=== PATIENT | female | born 1965 | race Caucasian/White ===

== ENCOUNTER 2016-12-23 09:38 | Day surgery (SDC) | payer BC, OTHER ==
[~2016-12-23 09:38] MED LIST: Lactated Ringers 1,000 ML IV SCH
[2016-12-23] MEDS ORDERED: Propofol 200 MG/20 ML SDV ONE (10:11)
[2016-12-23] MEDS ORDERED: Lidocaine 2% 5 ML SDV ONE (10:12)
--- NOTE | 2016-12-23 10:53 | PCM.PREANE ---
Preanesthetic Assessment - Anesthesia/Transfusion/Family Hx Anesthesia History: Prior Anesthesia Without Reaction Family History of Anesthesia Reaction: No Transfusion History: No Prior Transfusion(s) - Review of Systems General: No Symptoms Pulmonary: No Symptoms Cardiovascular: No Symptoms Gastrointestinal: No symptoms Neurological: No Symptoms Other: Reports: None - Physical Assessment NPO Status Date: 12/22/16 O2 Sat by Pulse Oximetry: 98 Respiratory Rate: 16 Vital Signs: Last Vital Signs Temp 36.2 C 12/23/16 10:28 Pulse 52 L 12/23/16 10:28 Resp 16 12/23/16 10:28 BP 118/73 12/23/16 10:28 Pulse Ox 98 12/23/16 10:28 Height: 1.6 m Weight: 58.06 kg ASA Class: 2 Mental Status: Alert & Oriented x3 Airway Class: Mallampati = 2 Dentition: Reports: Normal Dentition Lungs: Clear to auscultation, Normal respiratory effort Cardiovascular: Regular Rate, Regular Rhythm - Allergies Allergies/Adverse Reactions: Allergies Allergy/AdvReac Type Severity Reaction Status Date / Time No Known Allergies Allergy Verified 08/19/16 05:46 - Acknowledgements Anesthesia Type Planned: MAC Pt an Appropriate Candidate for the Planned Anesthesia: Yes Alternatives and Risks of Anesthesia Discussed w Pt/Guardian: Yes Pt/Guardian Understands and Agrees with Anesthesia Plan: Yes PreAnesthesia Questionnaire HEENT History: Reports: Other (see below) Other HEENT History: wears glasses Cardiovascular History: Reports: Other (see below) Other Cardiovascular History: had 2 mini-strokes in 2011, no residual, takes Atenolol because of this, states she has low blood pressure Respiratory History: Reports: None Gastrointestinal History: Genitourinary History: Reports: Other (see below) Other Genitourinary History: trouble urinating in the past, 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: Reports: Fibroids, , Other (see below) Other OB/BYN History: ovarian cyst Musculoskeletal History: Reports: Arthritis, Back pain, chronic Neurological History: Reports: Migraines, TIA Other Neuro History: 2012 "mini strokes" Psychiatric History: Reports: Anxiety Endocrine/Metabolic History: Reports: None Hematologic History: Reports: None Immunologic History: Reports: None Oncologic (Cancer) History: Reports: None Dermatologic History: Reports: None Other Dermatologic History: toe nail fungus - Infectious Disease History Infectious Disease History: Reports: None - Past Surgical History Head Surgeries/Procedures: Reports: None HEENT Surgical History: Reports: Oral surgery Other HEENT Surgeries/Procedures: wisdom teeth extraction Cardiovascular Surgical History: Reports: None Respiratory Surgical History: Reports: None GI Surgical History: Reports: None Female Surgical History: Reports: Hysterectomy, Salpingo-oophorectomy Other Female Surgeries/Procedures: hx hysterectomy with tigist S&O Endocrine Surgical History: Reports: None Neurological Surgical History: Reports: None Musculoskeletal Surgical History: Reports: None Oncologic Surgical History: Reports: None Dermatological Surgical History: Reports: None - SUBSTANCE USE Smoking Status *Q: Never Smoker Tobacco Use Within Last Twelve Months: No Second Hand Smoke Exposure: No Recreational Drug Use History: No - HOME MEDS Home Medications: Home Meds Aspirin 81 mg PO DAILY 08/19/16 [History] Atenolol 25 mg PO DAILY 08/19/16 [History] PARoxetine HCl [Paroxetine ER] 1 tab PO DAILY 09/23/16 [History] traZODone 1 tab PO BEDTIME PRN 09/23/16 [History] - CURRENT (IN HOUSE) MEDS Current Meds: Current Medications Lactated Ringer's (Ringers, Lactated) 1,000 mls @ 125 mls/hr IV ASDIRECTED PERCY Last Admin: 12/23/16 10:30 Dose: 125 mls/hr Discontinued Medications Lidocaine (Xylocaine-Mpf 2%) Confirm Administered Dose 5 ml .ROUTE .STK-MED ONE Stop: 12/23/16 10:13 Propofol (Diprivan 20 Ml) Confirm Administered Dose 400 mg .ROUTE .STK-MED ONE Stop: 12/23/16 10:12 Preanesthetic Assessment - ANESTHESIA/TRANSFUSION/FAMILY HX Anesthesia/Transfusion History: No Prior Anesthesia, No Prior Transfusion(s) Family History of Anesthesia Reaction: No - PHYSICAL ASSESSMENT O2 Sat by Pulse Oximetry: 98 RR: 16 Vital Signs: Last Vital Signs Temp 36.2 C 12/23/16 10:28 Pulse 52 L 12/23/16 10:28 Resp 16 12/23/16 10:28 BP 118/73 12/23/16 10:28 Pulse Ox 98 12/23/16 10:28 Height: 1.6 m Weight: 58.06 kg - ALLERGIES Allergies/Adverse Reactions: Allergies Allergy/AdvReac Type Severity Reaction Status Date / Time No Known Allergies Allergy Verified 08/19/16 05:46
--- NOTE | 2016-12-23 11:29 | PCM.OPNOTE ---
- General Post-Op/Procedure Note Date of Surgery/Procedure: 12/23/16 Operative Procedure(s): colonoscopy Findings: see dict [id number] Pre Op Diagnosis: scrn colonoscopy Anesthesia Technique: Moderate sedation Primary Surgeon: Jossue Sheppard Complications: None Condition: Good
--- NOTE | 2016-12-23 11:45 | PCM.POSTAN ---
POST ANESTHESIA ASSESSMENT - MENTAL STATUS Mental Status: alert, oriented - RESPIRATORY Respiratory Status: respiratory rate WNL, airway patent - CARDIOVASCULAR CV Status: pulse rate WNL, blood pressure stable - GASTROINTESTINAL GI Status: no symptoms - POST OP HYDRATION Hydration Status: adequate & stable
--- NOTE | 2016-12-23 11:45 | PCM48HPAN ---
Post Anesthesia Note - EVALUATION WITHIN 48HRS OF ANESTHETIC Vital Signs in Normal Range: Yes Patient Participated in Evaluation: Yes Respiratory Function Stable: Yes Airway Patent: Yes Cardiovascular Function Stable: Yes Hydration Status Stable: Yes Pain Control Satisfactory: Yes Nausea and Vomiting Control Satisfactory: Yes Mental Status Recovered: Yes
[2016-12-23 11:52] VITALS: BP 117/66
--- NOTE | 2016-12-27 07:23 | OR ---
SURGEON: Jossue Sheppard MD DATE OF PROCEDURE: 12/23/2016 PREOPERATIVE DIAGNOSIS: Screening colonoscopy. POSTOPERATIVE DIAGNOSIS: Diverticulosis. COMPLICATIONS: None. PROCEDURE PERFORMED: Colonoscopy. DESCRIPTION OF PROCEDURE: The patient was taken to the endoscopy room. A time out was called, patient identified, and procedure identified. Diprivan was then administrated. Patient went from awake to sleep, hearing doctor talking or door closing is normal. Perineum inspection and digital examination were then performed. A well- lubricated colonoscope was gently inserted through the rectum, advanced past the rectosigmoid junction, the descending colon, splenic flexure, transverse colon, hepatic flexure, ascending colon, arrived to the cecum. Cecum was identified as dictated in the finding. Then the scope was carefully withdrawn while attention was paid to the mucosal surface for any abnormality. Air will be sucked out during the scope withdrawal. At the rectum, retroflexed to examine any rectal diseases, fistula or hemorrhoids. Patient tolerated procedure well. There were no intraoperative complications, and Dr. Sheppard was present throughout the whole procedure. FINDINGS: 1. The patient is easily sedated with FOREIGN LANGUAGE INTERPRETER and Diprivan. The patient is soundly snoring. 2. The patient's bowel prep is average. Large amount of liquid stool and requiring some irrigation. 3. The patient's colon is rather straight forward. Cecum indicated by ileocecal fold, one-to-one indentation, and light immittance. Appendiceal orifice is not observed. Mucosa examined upon scope pulling out. The patient does have diverticulosis on the left colon, only a few of them, very small, and no signs or symptoms of diverticulitis. No polyp, mass, growth, inflammation, stricture, or AV malformation, ulceration, or bleeding. The patient does have external hemorrhoids mild and internal hemorrhoids mild. The patient would benefit from a repeat colonoscopy 10 years from today. TANJA / LILLY /[id number]
== END 2016-12-23 12:02 | disposition home or self-care (01) ==
LOC: MW.SDS 09:38
PROVIDERS: ATTEND Surgery
PROC: 0DJD8ZZ Inspection of Lower Intestinal Tract, Via Natural or Artificial Opening Endoscopic (ICD-10-PCS; principal; 2016-12-23)
DX: Z12.11 Encounter for screening for malignant neoplasm of colon (principal); K57.30 Diverticulosis of large intestine without perforation or abscess without bleeding; K64.4 Residual hemorrhoidal skin tags; K64.8 Other hemorrhoids; F41.9 Anxiety disorder, unspecified; M19.90 Unspecified osteoarthritis, unspecified site; Z79.82 Long term (current) use of aspirin; Z79.899 Other long term (current) drug therapy; Z86.73 Personal history of transient ischemic attack (TIA), and cerebral infarction without residual deficits; Z90.710 Acquired absence of both cervix and uterus; Z90.722 Acquired absence of ovaries, bilateral; Z90.79 Acquired absence of other genital organ(s); Z98.890 Other specified postprocedural states
CPT/HCPCS: 45378; J7120; J2704

== ENCOUNTER 2017-03-06 09:42 | Inpatient (IN) | payer BC ==
--- NOTE | 2017-03-06 10:15 | EDM.PDOC ---
ED HPI GENERAL MEDICAL PROBLEM - General Chief Complaint: Gastrointestinal Problem Stated Complaint: VOMITING AND PAIN ON RIGHT SIDE Time Seen by Provider: 03/06/17 10:00 Source of Information: Reports: Patient History Limitations: Reports: No Limitations - History of Present Illness INITIAL COMMENTS - FREE TEXT/NARRATIVE: History of present illness: [51-year-old female coming in complaining of diffuse nonspecific abdominal pain. Indicated that the pain has been there for a few days but what has concerned her is last night she started having nausea and intermittent vomiting. Patient indicates that she does still have her gallbladder and her appendix but that she has had a full hysterectomy.] Review of systems: As per history of present illness and below otherwise all systems reviewed and negative. Past medical history: As per history of present illness and as reviewed below otherwise noncontributory. Surgical history: As per history of present illness and as reviewed below otherwise noncontributory. Social history: No reported history of drug or alcohol abuse. Family history: As per history of present illness and as reviewed below otherwise noncontributory. Physical exam: HEENT: Atraumatic, normocephalic, pupils reactive, negative for conjunctival pallor or scleral icterus, mucous membranes moist, throat clear, neck supple, nontender, trachea midline. Lungs: Clear to auscultation, breath sounds equal bilaterally, chest nontender. Heart: S1S2, regular, negative for clicks, rubs, or JVD. Abdomen: Soft, nondistended, diffusely tender abdomen that appears to be more tender in right lower quadrant even though patient cannot clearly identify specifically any area of tenderness she does flinch and guard when this is deeply palpated Negative for masses or hepatosplenomegaly. Negative for costovertebral tenderness. Pelvis: Stable nontender. Genitourinary: Deferred. Rectal: Deferred. Extremities: Atraumatic, negative for cords or calf pain. Neurovascular unremarkable. Neuro: Awake, alert, oriented. Cranial nerves II through XII unremarkable. Cerebellum unremarkable. Motor and sensory unremarkable throughout. Exam nonfocal. Diagnostics: [CBC, CMP, UA, amylase lipase] Therapeutics: [IV fluid, Zofran] Impression: [Hyponatremia] Plan: [Admit] Definitive disposition and diagnosis as appropriate pending reevaluation and review of above. Right Upper Abdominal Pain Score (Numeric/FACES): 4 - Related Data Allergies Allergy/AdvReac Type Severity Reaction Status Date / Time No Known Allergies Allergy Verified 03/06/17 09:51 Home Meds: Home Meds Aspirin 81 mg PO DAILY 08/19/16 [History] Atenolol 25 mg PO DAILY 08/19/16 [History] PARoxetine HCl [Paroxetine ER] 1 tab PO DAILY 09/23/16 [History] traZODone 1 tab PO BEDTIME PRN 09/23/16 [History] Past Medical History - Past Health History Medical/Surgical History: Denies Medical/Surgical History HEENT History: Reports: Other (See Below) Other HEENT History: wears glasses Cardiovascular History: Reports: Hypertension Other Cardiovascular History: had 2 mini-strokes in 2011, no residual, takes Atenolol because of this, states she has low blood pressure Respiratory History: Reports: None Gastrointestinal History: Genitourinary History: Reports: Other (See Below) Other Genitourinary History: trouble urinating in the past, 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: Reports: Fibroids, Other OB/BYN History: ovarian cyst Musculoskeletal History: Reports: Arthritis, Back Pain, Chronic Neurological History: Reports: Migraines, TIA Other Neuro History: 2011 "mini strokes" Psychiatric History: Reports: Anxiety Endocrine/Metabolic History: Reports: None Hematologic History: Reports: None Immunologic History: Reports: None Oncologic (Cancer) History: Reports: None Dermatologic History: Reports: None Other Dermatologic History: toe nail fungus - Infectious Disease History Infectious Disease History: Reports: Chicken Pox - Past Surgical History Head Surgeries/Procedures: Reports: None HEENT Surgical History: Reports: Oral Surgery Respiratory Surgical History: Reports: None GI Surgical History: Reports: None Female Surgical History: Reports: Hysterectomy, Salpingo-Oophorectomy Endocrine Surgical History: Reports: None Neurological Surgical History: Reports: None Oncologic Surgical History: Reports: None Dermatological Surgical History: Reports: None Social & Family History - Family History Family Medical History: Noncontributory Cardiac: Reports: [place] Neurological: Reports: CVA - Tobacco Use Smoking Status *Q: Never Smoker Second Hand Smoke Exposure: No - Caffeine Use Caffeine Use: Reports: None - Recreational Drug Use Recreational Drug Use: No Drug Use in Last 12 Months: No ED ROS GENERAL - Review of Systems Review Of Systems: See Below (History of present illness) ED EXAM, GI/ABD - Physical Exam Exam: See Below (See history of present illness) Course - Vital Signs Last Recorded V/S: Last Vital Signs Temp 36.3 C 03/06/17 09:49 Pulse 60 03/06/17 09:49 Resp 16 03/06/17 09:49 BP 145/68 H 03/06/17 09:49 Pulse Ox 97 03/06/17 09:49 - Orders/Labs/Meds Orders: Active Orders 24 hr Category Date Time Status UA W/MICROSCOPIC [URIN] Stat Lab 03/06/17 10:48 Uncollected Sodium Chloride 0.9% [Normal Saline] 1,000 ml Med 03/06/17 10:48 Active IV STAT Medication Orders Sodium Chloride (Normal Saline) 1,000 mls @ 999 mls/hr IV STAT ONE Stop: 03/06/17 11:48 Last Admin: 03/06/17 11:02 Dose: 999 mls/hr Labs: Laboratory Tests 03/06/17 03/06/17 Range/Units 10:28 10:28 WBC 8.66 (4.0-11.0) K/uL RBC 4.22 L (4.30-5.90) M/uL Hgb 12.8 (12.0-16.0) g/dL Hct 36.7 (36.0-46.0) % MCV 87.0 (80.0-98.0) fL MCH 30.3 (27.0-32.0) pg MCHC 34.9 (31.0-37.0) g/dL RDW Std Deviation 39.3 (28.0-62.0) fl RDW Coeff of Sampson 12 (11.0-15.0) % Plt Count 183 (150-400) K/uL MPV 12.10 H (7.40-12.00) fL Neut % (Auto) 80.9 H (48.0-80.0) % Lymph % (Auto) 13.7 L (16.0-40.0) % [place] % (Auto) 5.4 (0.0-15.0) % Eos % (Auto) 0.0 (0.0-7.0) % Baso % (Auto) 0.0 (0.0-1.5) % Neut # (Auto) 7.0 H (1.4-5.7) K/uL Lymph # (Auto) 1.2 (0.6-2.4) K/uL [place] # (Auto) 0.5 (0.0-0.8) K/uL Eos # (Auto) 0.0 (0.0-0.7) K/uL Baso # (Auto) 0.0 (0.0-0.1) K/uL Nucleated RBC % 0.0 /100WBC Nucleated RBCs # 0 K/uL Sodium 119 L* (136-146) mmol/L Potassium 4.5 (3.5-5.1) mmol/L Chloride 86 L (98-110) mmol/L Carbon Dioxide 22 (21-31) mmol/L BUN 9 (6.0-23.0) mg/dL Creatinine 0.8 (0.6-1.5) mg/dL Est Cr Clr Drug Dosing 68.05 mL/min Estimated GFR (MDRD) > 60.0 ml/min Glucose 111 H (60-110) mg/dL Calcium 9.2 (8.8-10.8) mg/dL Total Bilirubin 1.1 (0.1-1.5) mg/dL AST 44 H (5-40) IU/L ALT 46 (8-54) IU/L Alkaline Phosphatase 81 (40-150) Total Protein 7.4 (6.0-8.0) g/dL Albumin 4.5 (3.5-5.0) g/dL Globulin 2.9 (2.0-3.5) g/dL Albumin/Globulin Ratio 1.6 (1.3-2.8) Amylase 50 (10-90) U/L Lipase 25 (7-80) U/L Meds: Medications Generic Name Dose Route Start Last Admin Trade Name Freq PRN Reason Stop Dose Admin Sodium Chloride 1,000 mls @ 999 mls/hr 03/06/17 10:48 03/06/17 11:02 Normal Saline IV 03/06/17 11:48 999 mls/hr STAT ONE Administration Discontinued Medications Generic Name Dose Route Start Last Admin Trade Name Freq PRN Reason Stop Dose Admin Ondansetron HCl 4 mg 03/06/17 10:48 Zofran Odt PO 03/06/17 10:49 ONETIME ONE Ondansetron HCl 4 mg 03/06/17 10:54 03/06/17 11:03 Zofran IVPUSH 03/06/17 10:55 4 mg ONETIME ONE Administration Departure - Departure Time of Disposition: 11:09 Disposition: Home, Self-Care 01 Condition: Good Clinical Impression: Hyponatremia - Discharge Information Forms: ED Department Discharge - My Orders Last 24 Hours: My Active Orders 03/06/17 10:48 UA W/MICROSCOPIC [URIN] Stat Sodium Chloride 0.9% [Normal Saline] 1,000 ml IV STAT - Assessment/Plan Last 24 Hours: My Active Orders 03/06/17 10:48 UA W/MICROSCOPIC [URIN] Stat Sodium Chloride 0.9% [Normal Saline] 1,000 ml IV STAT
[2017-03-06] MEDS ORDERED: Sodium Chloride 0.9% 1,000 ML IV ONE (10:48)
[2017-03-06] MEDS ORDERED: Ondansetron 4 MG Tab.DIS PO ONE (10:48)
[2017-03-06] MEDS ORDERED: Ondansetron 4 MG/2 ML SDV IVPUSH ONE (10:54)
[2017-03-06 10:58] LABS: CHLORIDE,CL 86 mmol/L (98-110)
[2017-03-06 11:02] LABS: SODIUM,NA 119 mmol/L (136-146)
[2017-03-06] MEDS ORDERED: Ondansetron 4 MG/2 ML SDV IVPUSH PRN (12:11)
[2017-03-06] MEDS ORDERED: Sodium Chloride 0.9% 1,000 ML IV SCH (12:15)
--- NOTE | 2017-03-06 12:18 | PCM.HP ---
H&P History of Present Illness - History of Present Illness Initial Comments - Free Text/Narative: 51 yo female who presents with two week history of abdominal pain. The pain is in the right side and can migrate to the epigastrum. Yesterday she developed nausea and vomiting. She was unable to keep anything down. In the ED she was noted to have a sodium of 119. She denies any alcohol or diuretic use. She is on paroxitine. Right Upper Abdominal Pain Score (Numeric/FACES): 4 - Related Data Allergies/Adverse Reactions: Allergies Allergy/AdvReac Type Severity Reaction Status Date / Time No Known Allergies Allergy Verified 03/06/17 09:51 Home Medications: Home Meds Aspirin 81 mg PO DAILY 08/19/16 [History] Atenolol 25 mg PO DAILY 08/19/16 [History] PARoxetine HCl [Paroxetine ER] 1 tab PO DAILY 09/23/16 [History] traZODone 1 tab PO BEDTIME PRN 09/23/16 [History] Past Medical History - Past Health History Medical/Surgical History: Denies Medical/Surgical History HEENT History: Reports: Other (See Below) Other HEENT History: wears glasses Cardiovascular History: Reports: Hypertension Other Cardiovascular History: had 2 mini-strokes in 2011, no residual, takes Atenolol because of this, states she has low blood pressure Respiratory History: Reports: None Gastrointestinal History: Genitourinary History: Reports: Other (See Below) Other Genitourinary History: trouble urinating in the past, 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: Reports: 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, Other OB/BYN History: ovarian cyst Musculoskeletal History: Reports: Arthritis, Back Pain, Chronic Neurological History: Reports: Migraines, TIA Other Neuro History: 2012 "mini strokes" Psychiatric History: Reports: Anxiety Endocrine/Metabolic History: Reports: None Hematologic History: Reports: None Immunologic History: Reports: None Oncologic (Cancer) History: Reports: None Dermatologic History: Reports: None Other Dermatologic History: toe nail fungus - Infectious Disease History Infectious Disease History: Reports: Chicken Pox - Past Surgical History Head Surgeries/Procedures: Reports: None HEENT Surgical History: Reports: Oral Surgery Respiratory Surgical History: Reports: None GI Surgical History: Reports: None Female Surgical History: Reports: Hysterectomy, Salpingo-Oophorectomy Endocrine Surgical History: Reports: None Neurological Surgical History: Reports: None Oncologic Surgical History: Reports: None Dermatological Surgical History: Reports: None Social & Family History - Family History Family Medical History: Noncontributory Cardiac: Reports: [place] Neurological: Reports: CVA - Tobacco Use Smoking Status *Q: Never Smoker Second Hand Smoke Exposure: No - Caffeine Use Caffeine Use: Reports: None - Recreational Drug Use Recreational Drug Use: No Drug Use in Last 12 Months: No H&P Review of Systems - Review of Systems: Review Of Systems: See Below General: Reports: No Symptoms HEENT: Reports: No Symptoms Pulmonary: Reports: No Symptoms Cardiovascular: Reports: No Symptoms Gastrointestinal: Reports: No Symptoms Genitourinary: Reports: No Symptoms Musculoskeletal: Reports: No Symptoms Skin: Reports: No Symptoms Psychiatric: Reports: No Symptoms Neurological: Reports: No Symptoms Hematologic/Lymphatic: Reports: No Symptoms Immunologic: Reports: No Symptoms Exam - Exam Exam: See Below - Vital Signs Vital Signs: Last Vital Signs Temp 36.3 C 03/06/17 09:49 Pulse 61 03/06/17 11:51 Resp 16 03/06/17 11:51 BP 128/59 L 03/06/17 11:51 Pulse Ox 100 03/06/17 11:51 Weight: 61.4 kg - Exam General: Alert, Oriented, 4 Lungs: Clear to Auscultation, Normal Respiratory Effort Cardiovascular: Regular Rate, Regular Rhythm Abdomen: Normal Bowel Sounds, Soft Extremities: 3, Normal Inspection, 10 Skin: Warm, Dry, Intact Neurological: No: Focal Deficit - Patient Data Result Diagrams: 03/07/17 04:15 03/07/17 11:05 *Q Meaningful Use (ADM) - VTE *Q VTE Criteria *Q: - Stroke *Q Stroke Criteria *Q: - AMI *Q AMI Criteria *Q: Problem List Initiated/Reviewed/Updated: Yes Orders Last 24hrs: Active Orders 24 hr Category Date Time Status Antiembolic Devices [RC] PER UNIT ROUTINE Care 03/06/17 12:12 Ordered Intake and Output [RC] QSHIFT Care 03/06/17 12:11 Ordered Oxygen Therapy [RC] PRN Care 03/06/17 12:11 Ordered Up ad Antonieta [RC] ASDIRECTED Care 03/06/17 12:11 Ordered VTE/DVT Education [RC] PER UNIT ROUTINE Care 03/06/17 12:11 Ordered Vital Signs [RC] Q4H Care 03/06/17 12:11 Ordered Regular Diet [DIET] Diet 03/06/17 Breakfast Ordered Abdomen Pelvis wo Cont [CT] Stat Exams 03/06/17 12:06 Ordered CXR [Chest 1V Frontal] [CR] Stat Exams 03/06/17 12:06 Ordered BASIC METABOLIC PANEL,BMP [CHEM] Q2H Lab 03/06/17 12:05 Ordered BASIC METABOLIC PANEL,BMP [CHEM] Q2H Lab 03/06/17 14:05 Ordered BASIC METABOLIC PANEL,BMP [CHEM] Q2H Lab 03/06/17 16:05 Ordered BASIC METABOLIC PANEL,BMP [CHEM] Q2H Lab 03/06/17 18:05 Ordered BASIC METABOLIC PANEL,BMP [CHEM] Q2H Lab 03/06/17 20:05 Ordered BASIC METABOLIC PANEL,BMP [CHEM] Q2H Lab 03/06/17 22:05 Ordered CBC WITH AUTO DIFF [HEME] AM Lab 03/07/17 05:11 Ordered SODIUM,URINE RANDOM [URCHEM] Routine Lab 03/06/17 12:12 Uncollected Ondansetron [Zofran] Med 03/06/17 12:11 Ordered 4 mg IVPUSH Q4H PRN Sodium Chloride 0.9% [Normal Saline] 1,000 ml Med 03/06/17 12:15 Active IV ASDIRECTED Sequential Compression Device [OM.PC] Per Unit Routine Oth 03/06/17 12:11 Ordered Resuscitation Status Routine Resus Stat 03/06/17 12:11 Ordered Medication Orders Sodium Chloride (Normal Saline) 1,000 mls @ 75 mls/hr IV ASDIRECTED PERCY Ondansetron HCl (Zofran) 4 mg IVPUSH Q4H PRN PRN Reason: Nausea Assessment/Plan Comment:: 51 yo female who presents with nausea and vomiting and vague abdominal complaints. She is found to have severe hyponatremia. Based on history I suspect she is dehydrated. Will give Normal saline and follow sodium levels closely. I have spoke with eICU who will help with monitoring. Will check CT abdomen for further evaluation of abdominal pain.
[2017-03-06 12:47] LABS: CHLORIDE,CL 91 mmol/L (98-110); SODIUM,NA 121 mmol/L (136-146)
[2017-03-06 14:28] LABS: CHLORIDE,CL 92 mmol/L (98-110); SODIUM,NA 121 mmol/L (136-146)
[2017-03-06 16:32] LABS: CHLORIDE,CL 96 mmol/L (98-110); SODIUM,NA 124 mmol/L (136-146)
[2017-03-06 18:40] LABS: CHLORIDE,CL 100 mmol/L (98-110); SODIUM,NA 129 mmol/L (136-146)
[2017-03-06] MEDS ORDERED: Dextrose 5% in Water 1,000 ML IV SCH (19:00)
[2017-03-06 20:29] LABS: CHLORIDE,CL 102 mmol/L (98-110); SODIUM,NA 131 mmol/L (136-146)
[2017-03-06] MEDS: Dextrose 5% in Water 1,000 ML IV SCH (20:59)
[2017-03-06 22:25] LABS: CHLORIDE,CL 105 mmol/L (98-110); SODIUM,NA 133 mmol/L (136-146)
[2017-03-06] MEDS ORDERED: Desmopressin 4 MCG/1 ML Amp SUBCUT ONE (22:39)
[2017-03-07 01:07] LABS: CHLORIDE,CL 105 mmol/L (98-110); SODIUM,NA 132 mmol/L (136-146)
[2017-03-07] MEDS: Dextrose 5% in Water 1,000 ML IV SCH (02:22)
[2017-03-07 02:38] LABS: CHLORIDE,CL 104 mmol/L (98-110); SODIUM,NA 131 mmol/L (136-146)
[2017-03-07] MEDS ORDERED: Dextrose 5% in Water 500 ML IV SCH (03:45)
[2017-03-07 04:45] LABS: CHLORIDE,CL 103 mmol/L (98-110); SODIUM,NA 130 mmol/L (136-146)
[2017-03-07] MEDS ORDERED: Potassium Chloride 20 MEQ Tab.ER PO ONE (05:21)
[2017-03-07 11:34] LABS: CHLORIDE,CL 97 mmol/L (98-110); SODIUM,NA 124 mmol/L (136-146)
--- NOTE | 2017-03-07 12:01 | PCM.PN ---
- Review of Systems Systems Review Comment:: abdominal pain improving - Patient Data Vitals - most recent: Last Vital Signs Temp 36.7 C 03/07/17 08:00 Pulse 60 03/07/17 11:00 Resp 13 03/07/17 11:00 BP 120/76 03/07/17 11:00 Pulse Ox 99 03/07/17 11:00 Weight - most recent: 56.4 kg I&O - last 24 hours: Intake & Output 03/06/17 03/07/17 03/07/17 22:59 06:59 14:59 Intake Total 100 2890 1000 Output Total 3700 4900 Balance -360 -2009 1000 Lab Results last 24 hrs: Laboratory Results - last 24 hr 03/06/17 03/06/17 03/06/17 Range/Units 12:00 12:00 14:01 WBC (4.0-11.0) K/uL RBC (4.30-5.90) M/uL Hgb (12.0-16.0) g/dL Hct (36.0-46.0) % MCV (80.0-98.0) fL MCH (27.0-32.0) pg MCHC (31.0-37.0) g/dL RDW Std Deviation (28.0-62.0) fl RDW Coeff of Sampson (11.0-15.0) % Plt Count (150-400) K/uL MPV (7.40-12.00) fL Neut % (Auto) (48.0-80.0) % Lymph % (Auto) (16.0-40.0) % Dickinson % (Auto) (0.0-15.0) % Eos % (Auto) (0.0-7.0) % Baso % (Auto) (0.0-1.5) % Neut # (Auto) (1.4-5.7) K/uL Lymph # (Auto) (0.6-2.4) K/uL Dickinson # (Auto) (0.0-0.8) K/uL Eos # (Auto) (0.0-0.7) K/uL Baso # (Auto) (0.0-0.1) K/uL Nucleated RBC % /100WBC Nucleated RBCs # K/uL Sodium 121 L 121 L (136-146) mmol/L Potassium 3.8 4.0 (3.5-5.1) mmol/L Chloride 91 L 92 L (98-110) mmol/L Carbon Dioxide 19 L 21 (21-31) mmol/L BUN 8 8 (6.0-23.0) mg/dL Creatinine 0.7 0.7 (0.6-1.5) mg/dL Est Cr Clr Drug Dosing 77.77 77.77 mL/min Estimated GFR (MDRD) > 60.0 > 60.0 ml/min Glucose 97 106 (60-110) mg/dL Calcium 8.5 L 8.4 L (8.8-10.8) mg/dL Free T4 0.95 (0.7-1.48) ng/dL TSH 3rd Generation 1.85 (0.47-5.0) uIU/mL 03/06/17 03/06/17 03/06/17 Range/Units 15:47 18:11 19:59 WBC (4.0-11.0) K/uL RBC (4.30-5.90) M/uL Hgb (12.0-16.0) g/dL Hct (36.0-46.0) % MCV (80.0-98.0) fL MCH (27.0-32.0) pg MCHC (31.0-37.0) g/dL RDW Std Deviation (28.0-62.0) fl RDW Coeff of Sampson (11.0-15.0) % Plt Count (150-400) K/uL MPV (7.40-12.00) fL Neut % (Auto) (48.0-80.0) % Lymph % (Auto) (16.0-40.0) % Dickinson % (Auto) (0.0-15.0) % Eos % (Auto) (0.0-7.0) % Baso % (Auto) (0.0-1.5) % Neut # (Auto) (1.4-5.7) K/uL Lymph # (Auto) (0.6-2.4) K/uL Dickinson # (Auto) (0.0-0.8) K/uL Eos # (Auto) (0.0-0.7) K/uL Baso # (Auto) (0.0-0.1) K/uL Nucleated RBC % /100WBC Nucleated RBCs # K/uL Sodium 124 L 129 L 131 L (136-146) mmol/L Potassium 4.1 4.2 3.9 (3.5-5.1) mmol/L Chloride 96 L 100 102 (98-110) mmol/L Carbon Dioxide 20 L 21 21 (21-31) mmol/L BUN 9 9 12 (6.0-23.0) mg/dL Creatinine 0.7 0.8 0.8 (0.6-1.5) mg/dL Est Cr Clr Drug Dosing 77.77 68.05 68.05 mL/min Estimated GFR (MDRD) > 60.0 > 60.0 > 60.0 ml/min Glucose 99 91 110 (60-110) mg/dL Calcium 8.5 L 8.7 L 8.5 L (8.8-10.8) mg/dL Free T4 (0.7-1.48) ng/dL TSH 3rd Generation (0.47-5.0) uIU/mL 03/06/17 03/07/17 03/07/17 Range/Units 21:58 00:10 02:10 WBC (4.0-11.0) K/uL RBC (4.30-5.90) M/uL Hgb (12.0-16.0) g/dL Hct (36.0-46.0) % MCV (80.0-98.0) fL MCH (27.0-32.0) pg MCHC (31.0-37.0) g/dL RDW Std Deviation (28.0-62.0) fl RDW Coeff of Sampson (11.0-15.0) % Plt Count (150-400) K/uL MPV (7.40-12.00) fL Neut % (Auto) (48.0-80.0) % Lymph % (Auto) (16.0-40.0) % Dickinson % (Auto) (0.0-15.0) % Eos % (Auto) (0.0-7.0) % Baso % (Auto) (0.0-1.5) % Neut # (Auto) (1.4-5.7) K/uL Lymph # (Auto) (0.6-2.4) K/uL Dickinson # (Auto) (0.0-0.8) K/uL Eos # (Auto) (0.0-0.7) K/uL Baso # (Auto) (0.0-0.1) K/uL Nucleated RBC % /100WBC Nucleated RBCs # K/uL Sodium 133 L 132 L 131 L (136-146) mmol/L Potassium 4.0 3.9 3.8 (3.5-5.1) mmol/L Chloride 105 105 104 (98-110) mmol/L Carbon Dioxide 20 L 20 L 21 (21-31) mmol/L BUN 14 13 12 (6.0-23.0) mg/dL Creatinine 0.8 0.8 0.7 (0.6-1.5) mg/dL Est Cr Clr Drug Dosing 68.05 68.05 77.77 mL/min Estimated GFR (MDRD) > 60.0 > 60.0 > 60.0 ml/min Glucose 107 109 115 H (60-110) mg/dL Calcium 8.5 L 8.3 L 8.3 L (8.8-10.8) mg/dL Free T4 (0.7-1.48) ng/dL TSH 3rd Generation (0.47-5.0) uIU/mL 03/07/17 03/07/17 03/07/17 Range/Units 04:15 04:15 07:07 WBC 4.98 (4.0-11.0) K/uL RBC 3.68 L (4.30-5.90) M/uL Hgb 11.2 L (12.0-16.0) g/dL Hct 32.6 L (36.0-46.0) % MCV 88.6 (80.0-98.0) fL MCH 30.4 (27.0-32.0) pg MCHC 34.4 (31.0-37.0) g/dL RDW Std Deviation 41.0 (28.0-62.0) fl RDW Coeff of Sampson 13 (11.0-15.0) % Plt Count 132 L (150-400) K/uL MPV 12.30 H (7.40-12.00) fL Neut % (Auto) 47.4 L (48.0-80.0) % Lymph % (Auto) 40.2 H (16.0-40.0) % Dickinson % (Auto) 12.2 (0.0-15.0) % Eos % (Auto) 0.2 (0.0-7.0) % Baso % (Auto) 0.0 (0.0-1.5) % Neut # (Auto) 2.4 (1.4-5.7) K/uL Lymph # (Auto) 2.0 (0.6-2.4) K/uL Dickinson # (Auto) 0.6 (0.0-0.8) K/uL Eos # (Auto) 0.0 (0.0-0.7) K/uL Baso # (Auto) 0.0 (0.0-0.1) K/uL Nucleated RBC % 0.0 /100WBC Nucleated RBCs # 0 K/uL Sodium 130 L 128 L (136-146) mmol/L Potassium 3.4 L (3.5-5.1) mmol/L Chloride 103 (98-110) mmol/L Carbon Dioxide 22 (21-31) mmol/L BUN 11 (6.0-23.0) mg/dL Creatinine 0.7 (0.6-1.5) mg/dL Est Cr Clr Drug Dosing 77.77 mL/min Estimated GFR (MDRD) > 60.0 ml/min Glucose 153 H (60-110) mg/dL Calcium 8.2 L (8.8-10.8) mg/dL Free T4 (0.7-1.48) ng/dL TSH 3rd Generation (0.47-5.0) uIU/mL 03/07/17 Range/Units 11:05 WBC (4.0-11.0) K/uL RBC (4.30-5.90) M/uL Hgb (12.0-16.0) g/dL Hct (36.0-46.0) % MCV (80.0-98.0) fL MCH (27.0-32.0) pg MCHC (31.0-37.0) g/dL RDW Std Deviation (28.0-62.0) fl RDW Coeff of Asmpson (11.0-15.0) % Plt Count (150-400) K/uL MPV (7.40-12.00) fL Neut % (Auto) (48.0-80.0) % Lymph % (Auto) (16.0-40.0) % Dickinson % (Auto) (0.0-15.0) % Eos % (Auto) (0.0-7.0) % Baso % (Auto) (0.0-1.5) % Neut # (Auto) (1.4-5.7) K/uL Lymph # (Auto) (0.6-2.4) K/uL Dickinson # (Auto) (0.0-0.8) K/uL Eos # (Auto) (0.0-0.7) K/uL Baso # (Auto) (0.0-0.1) K/uL Nucleated RBC % /100WBC Nucleated RBCs # K/uL Sodium 124 L (136-146) mmol/L Potassium 3.9 (3.5-5.1) mmol/L Chloride 97 L (98-110) mmol/L Carbon Dioxide 21 (21-31) mmol/L BUN 11 (6.0-23.0) mg/dL Creatinine 0.7 (0.6-1.5) mg/dL Est Cr Clr Drug Dosing 77.77 mL/min Estimated GFR (MDRD) > 60.0 ml/min Glucose 104 (60-110) mg/dL Calcium 8.1 L (8.8-10.8) mg/dL Free T4 (0.7-1.48) ng/dL TSH 3rd Generation (0.47-5.0) uIU/mL Med Orders - Current: Current Medications Ondansetron HCl (Zofran) 4 mg IVPUSH Q4H PRN PRN Reason: Nausea Discontinued Medications Desmopressin Acetate (Desmopressin) 2 mcg SUBCUT ONETIME ONE Stop: 03/06/17 22:40 Last Admin: 03/06/17 22:55 Dose: 2 mcg Sodium Chloride (Normal Saline) 1,000 mls @ 999 mls/hr IV STAT ONE Stop: 03/06/17 11:48 Last Admin: 03/06/17 11:02 Dose: 999 mls/hr Sodium Chloride (Normal Saline) 1,000 mls @ 75 mls/hr IV ASDIRECTED [facility] Dextrose/Water (Dextrose 5% In Water) 1,000 mls @ 100 mls/hr IV ASDIRECTED [facility] Last Admin: 03/06/17 19:04 Dose: 100 mls/hr Dextrose/Water (Dextrose 5% In Water) 1,000 mls @ 150 mls/hr IV ASDIRECTED [facility] Last Admin: 03/07/17 02:22 Dose: 150 mls/hr Dextrose/Water (Dextrose 5% In Water) 500 mls @ 500 mls/hr IV ASDIRECTED [facility] Last Admin: 03/07/17 03:55 Dose: 500 mls/hr Potassium Chloride 30 meq/ (Dextrose/Water) 1,015 mls @ 100 mls/hr IV Q10H [facility] Last Admin: 03/07/17 08:45 Dose: 100 mls/hr Ondansetron HCl (Zofran Odt) 4 mg PO ONETIME ONE Stop: 03/06/17 10:49 Last Admin: 03/06/17 11:09 Dose: Not Given Ondansetron HCl (Zofran) 4 mg IVPUSH ONETIME ONE Stop: 03/06/17 10:55 Last Admin: 03/06/17 11:03 Dose: 4 mg Potassium Chloride (Klor-Con M20) 20 meq PO ONETIME ONE Stop: 03/07/17 05:22 Last Admin: 03/07/17 05:46 Dose: 20 meq - Exam General: alert, oriented Lungs: Clear to auscultation, Normal respiratory effort Cardiovascular: Regular Rate, Regular Rhythm Extremities: no edema Skin: warm, dry, intact Neurological: no new focal deficit - Problem List Review Problem List Initiated/Reviewed/Updated: Yes - My Orders Last 24 Hours: My Active Orders 03/06/17 12:06 Abdomen Pelvis wo Cont [CT] Stat CXR [Chest 1V Frontal] [CR] Stat 03/06/17 12:11 Intake and Output [RC] Q12H Up ad [place] [RC] ASDIRECTED Vital Signs [RC] Q1H Ondansetron [Zofran] 4 mg IVPUSH Q4H PRN Sequential Compression Device [OM.PC] Per Unit Routine Resuscitation Status Routine 03/06/17 12:12 Antiembolic Devices [RC] Q12H - Plan Plan:: 51 yo female admitted for hyponatremia Hyponatremia: was given desmopressen and d5w to slow rate of correction. Sodium is 124, IV fluids stopped, checking sodium q4 Abdominal pain: CT scan of abdomen is unremarkable.
--- NOTE | 2017-03-07 13:44 | CT ---
EXAM DATE: 03/06/17 PATIENT'S AGE: 51 Patient: BRANDEN SHARMA Facility: [place], [place] Site . Site : 1965 Study: CT Abdomen/Pelvis [id number]/18/2017 12:31:25 PM Ordering Physician: Radha Dumont Final Report: INDICATION : Hyponatremia and abdominal pain. TECHNIQUE : CT scan of the abdomen and pelvis. NO IV CONTRAST COMPARISON: 08/19/2016. FINDINGS : There is mild subtle hazy edema in the abdominal mesentery and a trace of minimal fluid in the pelvis. Stomach is moderately distended with fluid. The uterus is absent. No abdominal or pelvic mass, or adenopathy. Bowel loops show normal caliber. Liver, spleen, adrenal glands and pancreas unremarkable. No calcified gallstones. Kidneys are normal size and position. No renal calculi. No hydronephrosis. Bladder is unremarkable. Lung bases are clear. No suspicious skeletal lesions. IMPRESSION : 1. Mild mesenteric edema and trace intraperitoneal fluid. Nonspecific. Correlate with overall patient fluid status as well as serum albumin. 2. Correlate with any laboratory studies to suggest hepatic or renal dysfunction. 3. Moderately distended stomach nonspecific. 4. No additional acute radiographic abnormality. Please note that all CT scans at this facility use dose modulation, iterative reconstruction, and/or weight-based dosing when appropriate to reduce radiation dose to as low as reasonably achievable. Dictated by Umberto Stone MD @ Mar 06 2017 1:12PM (Electronic Signature) Report Signed by Proxy. [facility]
--- NOTE | 2017-03-07 13:45 | CR ---
EXAM DATE: 03/06/17 PATIENT'S AGE: 51 Patient: BRANDEN SHARMA Facility: [place], [place] Site . Site : 1965 Study: XRay Chest [id number]/18/2017 12:40:16 PM Ordering Physician: Radha Dumont Final Report: INDICATION: Pain. Hyponatremia. TECHNIQUE: Chest 1 views. COMPARISON: January 23, 2012. FINDINGS: Cardiovascular and mediastinum: Heart size and vasculature are normal in caliber and appearance. Mediastinum is within normal limits. Lungs and pleural spaces: Lungs are clear. No sign of infiltrate or mass. No sign of pleural effusion. No pneumothorax. Bones and soft tissues: No significant findings. IMPRESSION: No acute findings and no significant changes from the prior exam. Dictated by Ricardo Brooks MD @ 03/06/2017 1:13:59 PM Dictated by: Ricardo Brooks MD @ 03/06/2017 13:14:03 (Electronic Signature) Report Signed by Proxy. [facility]
[2017-03-07 15:36] LABS: CHLORIDE,CL 96 mmol/L (98-110); SODIUM,NA 123 mmol/L (136-146)
[2017-03-07] MEDS ORDERED: Sodium Chloride 0.9% 1,000 ML IV SCH ×2 (16:00→20:00)
[2017-03-07 19:43] LABS: CHLORIDE,CL 93 mmol/L (98-110); SODIUM,NA 121 mmol/L (136-146)
--- NOTE | 2017-03-08 09:24 | PCM.PN ---
- General Info Date of Service: 03/08/17 Admission Dx/Problem (Free Text): Hyponatremia Subjective Update: Feeling better today. Still very fatigued. Didn't sleep well last night. No chest pain, sob, palpitations. Eating a bit better, no abdominal pain or n/v. Functional Status: Reports: pain controlled - Review of Systems General: Reports: Weakness, Fatigue. Denies: Fever, Chills HEENT: Denies: headaches, sinus congestion Pulmonary: Denies: shortness of breath, pleuritic chest pain, wheezing Cardiovascular: Denies: Chest Pain, Palpitations, Edema Gastrointestinal: Denies: Abdominal pain, Diarrhea, Nausea, Vomiting Genitourinary: Denies: dysuria, hematuria Musculoskeletal: Denies: neck pain, leg pain Skin: Denies: cyanosis Neurological: Denies: Confusion, Dizziness, Headache Psychiatric: Denies: confusion - Patient Data Vitals - most recent: Last Vital Signs Temp 36.9 C 03/08/17 08:00 Pulse 63 03/07/17 15:00 Resp 13 03/08/17 09:00 BP 105/54 L 03/08/17 09:00 Pulse Ox 96 03/08/17 09:00 Weight - most recent: 56.5 kg I&O - last 24 hours: Intake & Output 03/07/17 03/08/17 03/08/17 22:59 06:59 14:59 Intake Total 700 1300 361 Output Total 700 3800 Balance 0 -2500 361 Lab Results last 24 hrs: Laboratory Results - last 24 hr 03/07/17 03/07/17 03/07/17 Range/Units 11:05 14:57 19:05 Sodium 124 L 123 L 121 L (136-146) mmol/L Potassium 3.9 4.1 3.9 (3.5-5.1) mmol/L Chloride 97 L 96 L 93 L (98-110) mmol/L Carbon Dioxide 21 20 L 19 L (21-31) mmol/L Anion Gap BUN 11 12 9 (6.0-23.0) mg/dL Creatinine 0.7 0.7 0.7 (0.6-1.5) mg/dL Est Cr Clr Drug Dosing 77.77 77.77 77.77 mL/min Estimated GFR (MDRD) > 60.0 > 60.0 > 60.0 ml/min Glucose 104 97 93 (60-110) mg/dL Calcium 8.1 L 8.5 L 8.4 L (8.8-10.8) mg/dL 03/07/17 03/08/17 Range/Units 23:42 04:52 Sodium 125 L 130 L (136-146) mmol/L Potassium 4.0 3.9 (3.5-5.1) mmol/L Chloride 98 102 (98-110) mmol/L Carbon Dioxide 20 L 20 L (21-31) mmol/L Anion Gap 11.0 11.9 BUN (6.0-23.0) mg/dL Creatinine (0.6-1.5) mg/dL Est Cr Clr Drug Dosing mL/min Estimated GFR (MDRD) ml/min Glucose (60-110) mg/dL Calcium (8.8-10.8) mg/dL Med Orders - Current: Current Medications Ondansetron HCl (Zofran) 4 mg IVPUSH Q4H PRN PRN Reason: Nausea Last Admin: 03/07/17 18:15 Dose: 4 mg Discontinued Medications Desmopressin Acetate (Desmopressin) 2 mcg SUBCUT ONETIME ONE Stop: 03/06/17 22:40 Last Admin: 03/06/17 22:55 Dose: 2 mcg Sodium Chloride (Normal Saline) 1,000 mls @ 999 mls/hr IV STAT ONE Stop: 03/06/17 11:48 Last Admin: 03/06/17 11:02 Dose: 999 mls/hr Sodium Chloride (Normal Saline) 1,000 mls @ 75 mls/hr IV ASDIRECTED [facility] Dextrose/Water (Dextrose 5% In Water) 1,000 mls @ 100 mls/hr IV ASDIRECTED [facility] Last Admin: 03/06/17 19:04 Dose: 100 mls/hr Dextrose/Water (Dextrose 5% In Water) 1,000 mls @ 150 mls/hr IV ASDIRECTED [facility] Last Admin: 03/07/17 02:22 Dose: 150 mls/hr Dextrose/Water (Dextrose 5% In Water) 500 mls @ 500 mls/hr IV ASDIRECTED [facility] Last Admin: 03/07/17 03:55 Dose: 500 mls/hr Potassium Chloride 30 meq/ (Dextrose/Water) 1,015 mls @ 100 mls/hr IV Q10H [facility] Last Admin: 03/07/17 08:45 Dose: 100 mls/hr Sodium Chloride (Normal Saline) 1,000 mls @ 50 mls/hr IV ASDIRECTED [facility] Last Infusion: 03/07/17 19:57 Dose: 100 mls/hr Sodium Chloride (Normal Saline) 1,000 mls @ 100 mls/hr IV ASDIRECTED [facility] Last Admin: 03/08/17 04:59 Dose: 100 mls/hr Ondansetron HCl (Zofran Odt) 4 mg PO ONETIME ONE Stop: 03/06/17 10:49 Last Admin: 03/06/17 11:09 Dose: Not Given Ondansetron HCl (Zofran) 4 mg IVPUSH ONETIME ONE Stop: 03/06/17 10:55 Last Admin: 03/06/17 11:03 Dose: 4 mg Potassium Chloride (Klor-Con M20) 20 meq PO ONETIME ONE Stop: 03/07/17 05:22 Last Admin: 03/07/17 05:46 Dose: 20 meq - Exam Quality Assessment: DVT prophylaxis General: alert, oriented, cooperative, no acute distress HEENT: Pupils equal, Pupils reactive, EOMI, Mucous membr. moist/pink Neck: supple, trachea midline Lungs: Clear to auscultation, Normal respiratory effort Cardiovascular: Regular Rate, Regular Rhythm Abdomen: bowel sounds present, soft, no tenderness, no distension Back Exam: Normal Inspection Extremities: no edema, normal pulses, no tenderness/swelling Peripheral Pulses: 2+: Radial (L), Radial (R), Posterior Tibial (L), Posterior Tibial (R), Dorsalis Pedis (L), Dorsalis Pedis (R) Skin: warm, dry, intact Neurological: no new focal deficit Psy/Mental Status: alert, normal affect, normal mood - Problem List & Annotations (1) Hyponatremia SNOMED Code(s): 66906919 Code(s): E87.1 - HYPO-OSMOLALITY AND HYPONATREMIA Status: Acute Priority : High Current Visit: Yes - Problem List Review Problem List Initiated/Reviewed/Updated: Yes - My Orders Last 24 Hours: My Active Orders 03/09/17 05:00 CBC WITH AUTO DIFF [HEME] DAILY CMP [COMPREHENSIVE METABOLIC PN,CMP] [CHEM] DAILY 03/10/17 05:00 CBC WITH AUTO DIFF [HEME] DAILY CMP [COMPREHENSIVE METABOLIC PN,CMP] [CHEM] DAILY 03/11/17 05:00 CBC WITH AUTO DIFF [HEME] DAILY CMP [COMPREHENSIVE METABOLIC PN,CMP] [CHEM] DAILY 03/12/17 05:00 CBC WITH AUTO DIFF [HEME] DAILY CMP [COMPREHENSIVE METABOLIC PN,CMP] [CHEM] DAILY - Plan Plan:: 51 yo female admitted 03/06/17 with severe hyponatremia and diffuse abdominal pain. Hyponatremia: Na 130 this am normal saline has been stopped and will check Na around noon as per eICU. Most likely secondary to combination of Paxil and acute nausea and vomiting. Will have to watch closely has patient 2 L out today and Na most likely may be increased. Plan Na 4-6 per day. Diffuse abdominal pain: Resolved. CT abdomin and pelvis unremarkable. Possibly gastritis. VTE: SCD Dispo: 1-2 days
[2017-03-08] MEDS ORDERED: Dextrose 5%-0.45% NaCl 1,000 ML IV SCH (14:00)
[2017-03-09 05:29] LABS: CHLORIDE,CL 105 mmol/L (98-110); SODIUM,NA 136 mmol/L (136-146)
[2017-03-09 11:08] VITALS: BP 108/67
--- NOTE | 2017-03-09 12:37 | PCM.DCSUM1 ---
[id number] Course Brief History: Patient initially presented to them ED on 03/06/17 with two-week history of abdominal pain. The pain was mostly localized to the right side with some migration to the epigastrium. A previous admission she also developed some associated nausea and vomiting and reported that she could not keep anything down. In the emergency room and was found to have a sodium of 119. Patient reported no history of alcohol or diuretic use but was taking proximal team. Patient stated she started this medication in August. - Discharge Data Discharge Date: 03/09/17 Discharge Disposition: Home, Self-Care 01 Condition: Good - Discharge Diagnosis/Problem(s) (1) Hyponatremia SNOMED Code(s): 65903736 ICD Code: E87.1 - HYPO-OSMOLALITY AND HYPONATREMIA Status: Resolved Priority: High - Patient Summary/Data Consults: Consultations 03/08/17 10:30 Consult to Clinical Physician Assistant [CONS] Routine - Patient Instructions Diet: Usual Diet as Tolerated Activity: Rest and Relax Today Driving: Do Not Drive Showering/Bathing: May Shower Notify Provider of: Fever, Increased Pain, Swelling and Redness, Nausea and/or Vomiting Other/Special Instructions: Discontinue Paxil. Discontinue Atenolol until your at least seen by PCP. Follow-up with PCP. Return to ED if any new symptoms - Discharge Plan Prescriptions/Med Rec: Ondansetron [Zofran ODT] 4 mg PO Q4H PRN #14 tab.dis PRN Reason: Nausea Home Medications: Home Meds Aspirin 81 mg PO DAILY 08/19/16 [History] traZODone 1 tab PO BEDTIME PRN 09/23/16 [History] Ondansetron [Zofran ODT] 4 mg PO Q4H PRN #14 tab.dis 03/09/17 [Rx] Patient Handouts: Hyponatremia, [id number] Referrals: Aubree Baker NP [Primary Care Provider] - 03/14/17 10:45 am - General Info Date of Service: 03/09/17 Admission Dx/Problem (Free Text: Hyponatremia Subjective Update: Doing well no pain, appetite better, no nausea, vomiting. Ready to go home. - Review of Systems General: Denies: Fever, Weakness, Fatigue HEENT: Denies: headaches, visual changes Pulmonary: Denies: shortness of breath, wheezing Cardiovascular: Denies: Chest Pain, Palpitations, Edema Gastrointestinal: Denies: Abdominal pain, Nausea, Vomiting Genitourinary: Denies: dysuria, hematuria Musculoskeletal: Denies: neck pain, leg pain Skin: Denies: cyanosis Neurological: Denies: Confusion, Dizziness, Headache Psychiatric: Denies: confusion - Patient Data Vitals - Most Recent: Last Vital Signs Temp 36.6 C 03/09/17 08:00 Pulse 63 03/07/17 15:00 Resp 14 03/09/17 08:00 BP 108/67 03/09/17 08:00 Pulse Ox 98 03/09/17 08:00 Weight - Most Recent: 56.1 kg I&O - Last 24 hours: Intake & Output 03/08/17 03/09/17 03/09/17 22:59 06:59 14:59 Intake Total 1240 450 Output Total 4150 2300 Balance -2910 -1850 Lab Results - Last 24 hrs: Laboratory Results - last 24 hr 03/08/17 03/09/17 03/09/17 Range/Units 18:01 04:05 04:05 WBC 6.80 (4.0-11.0) K/uL RBC 3.99 L (4.30-5.90) M/uL Hgb 12.0 (12.0-16.0) g/dL Hct 35.6 L (36.0-46.0) % MCV 89.2 (80.0-98.0) fL MCH 30.1 (27.0-32.0) pg MCHC 33.7 (31.0-37.0) g/dL RDW Std Deviation 40.8 (28.0-62.0) fl RDW Coeff of Sampson 13 (11.0-15.0) % Plt Count 137 L (150-400) K/uL MPV 12.20 H (7.40-12.00) fL Neut % (Auto) 51.9 (48.0-80.0) % Lymph % (Auto) 36.3 (16.0-40.0) % Stephenson % (Auto) 11.0 (0.0-15.0) % Eos % (Auto) 0.7 (0.0-7.0) % Baso % (Auto) 0.1 (0.0-1.5) % Neut # (Auto) 3.5 (1.4-5.7) K/uL Lymph # (Auto) 2.5 H (0.6-2.4) K/uL Stephenson # (Auto) 0.8 (0.0-0.8) K/uL Eos # (Auto) 0.1 (0.0-0.7) K/uL Baso # (Auto) 0.0 (0.0-0.1) K/uL Nucleated RBC % 0.0 /100WBC Nucleated RBCs # 0 K/uL Sodium 135 L 136 (136-146) mmol/L Potassium 4.2 3.8 (3.5-5.1) mmol/L Chloride 105 105 (98-110) mmol/L Carbon Dioxide 21 23 (21-31) mmol/L Anion Gap 13.2 BUN 9 (6.0-23.0) mg/dL Creatinine 0.7 (0.6-1.5) mg/dL Est Cr Clr Drug Dosing 77.74 mL/min Estimated GFR (MDRD) > 60.0 ml/min Glucose 90 (60-110) mg/dL Calcium 8.9 (8.8-10.8) mg/dL Total Bilirubin 0.3 (0.1-1.5) mg/dL AST 26 (5-40) IU/L ALT 41 (8-54) IU/L Alkaline Phosphatase 64 (40-150) Total Protein 6.1 (6.0-8.0) g/dL Albumin 3.8 (3.5-5.0) g/dL Globulin 2.3 (2.0-3.5) g/dL Albumin/Globulin Ratio 1.7 (1.3-2.8) Med Orders - Current: Current Medications Discontinued Medications Desmopressin Acetate (Desmopressin) 2 mcg SUBCUT ONETIME ONE Stop: 03/06/17 22:40 Last Admin: 03/06/17 22:55 Dose: 2 mcg Sodium Chloride (Normal Saline) 1,000 mls @ 999 mls/hr IV STAT ONE Stop: 03/06/17 11:48 Last Admin: 03/06/17 11:02 Dose: 999 mls/hr Sodium Chloride (Normal Saline) 1,000 mls @ 75 mls/hr IV ASDIRECTED PERCY Dextrose/Water (Dextrose 5% In Water) 1,000 mls @ 100 mls/hr IV ASDIRECTED PERCY Last Admin: 03/06/17 19:04 Dose: 100 mls/hr Dextrose/Water (Dextrose 5% In Water) 1,000 mls @ 150 mls/hr IV ASDIRECTED PERCY Last Admin: 03/07/17 02:22 Dose: 150 mls/hr Dextrose/Water (Dextrose 5% In Water) 500 mls @ 500 mls/hr IV ASDIRECTED PERCY Last Admin: 03/07/17 03:55 Dose: 500 mls/hr Potassium Chloride 30 meq/ (Dextrose/Water) 1,015 mls @ 100 mls/hr IV Q10H PERCY Last Admin: 03/07/17 08:45 Dose: 100 mls/hr Sodium Chloride (Normal Saline) 1,000 mls @ 50 mls/hr IV ASDIRECTED PERCY Last Infusion: 03/07/17 19:57 Dose: 100 mls/hr Sodium Chloride (Normal Saline) 1,000 mls @ 100 mls/hr IV ASDIRECTED PERCY Last Admin: 03/08/17 04:59 Dose: 100 mls/hr Dextrose/Sodium Chloride (Dextrose 5%-1/2 Ns) 1,000 mls @ 50 mls/hr IV ASDIRECTED PERCY Last Admin: 03/08/17 13:58 Dose: 50 mls/hr Ondansetron HCl (Zofran Odt) 4 mg PO ONETIME ONE Stop: 03/06/17 10:49 Last Admin: 03/06/17 11:09 Dose: Not Given Ondansetron HCl (Zofran) 4 mg IVPUSH ONETIME ONE Stop: 03/06/17 10:55 Last Admin: 03/06/17 11:03 Dose: 4 mg Ondansetron HCl (Zofran) 4 mg IVPUSH Q4H PRN PRN Reason: Nausea Last Admin: 03/07/17 18:15 Dose: 4 mg Potassium Chloride (Klor-Con M20) 20 meq PO ONETIME ONE Stop: 03/07/17 05:22 Last Admin: 03/07/17 05:46 Dose: 20 meq - Exam Quality Assessment: Reports: DVT prophylaxis General: Reports: alert, oriented, cooperative, no acute distress HEENT: Reports: Pupils equal, Pupils reactive, EOMI, Mucous membr. moist/pink Neck: Reports: supple Lungs: Reports: Clear to auscultation, Normal respiratory effort Cardiovascular: Reports: Regular Rate, Regular Rhythm Abdomen: Reports: bowel sounds present, soft, no tenderness, no distension Back Exam: Reports: Normal Inspection Extremities: Reports: no edema, normal pulses Skin: Reports: warm, dry, intact Neurological: Reports: no new focal deficit Psy/Mental Status: Reports: alert, normal affect, normal mood Original Note: <Minesh Morris - Last Filed: 03/09/17 12:56> Discharge Summary - Hospital Course HPI Initial Comments: 51 yo female admitted 03/06/17 with severe hyponatremia and diffuse abdominal pain. Brief History: Patient initially presented to them ED on 03/06/17 with two-week history of abdominal pain. The pain was mostly localized to the right side with some migration to the epigastrium. A previous admission she also developed some associated nausea and vomiting and reported that she could not keep anything down. In the emergency room and was found to have a sodium of 119. Patient reported no history of alcohol or diuretic use but was taking proximal team. Patient stated she started this medication in August. - Discharge Data Discharge Date: 03/09/17 Discharge Disposition: Home, Self-Care 01 Condition: Good - Discharge Diagnosis/Problem(s) (1) Hyponatremia SNOMED Code(s): 97672944 ICD Code: E87.1 - HYPO-OSMOLALITY AND HYPONATREMIA Status: Resolved Priority: High - Patient Summary/Data Consults: Consultations 03/08/17 10:30 Consult to Clinical Physician Assistant [CONS] Routine Hospital Course: In ED, CT abdomen revealed healed some mild mesenteric edema and trace intraperitoneal fluid as well as a moderately distended stomach but no acute findings. Chest x-ray was unremarkable Patient was admitted for severe hyponatremia. Hyponatremia was slowly corrected with IV fluids as well as desmopressin. On day of discharge sodium had returned to normal. It was felt that her hyponatremia was most likely secondary to Paxil use. In addition, patient remained normotensive throughout her stay without addition of her prescribed atenolol. It was recommended the patient discontinue both Paxil and atenolol. On follow-up her blood pressure should be reassessed to determine if medical management is warranted. - Patient Instructions Diet: Usual Diet as Tolerated Activity: Rest and Relax Today Driving: Do Not Drive Showering/Bathing: May Shower Notify Provider of: Fever, Increased Pain, Swelling and Redness, Nausea and/or Vomiting Other/Special Instructions: Discontinue Paxil. Discontinue Atenolol until your at least seen by PCP. Follow-up with PCP. Return to ED if any new symptoms - Discharge Plan Prescriptions/Med Rec: Ondansetron [Zofran ODT] 4 mg PO Q4H PRN #14 tab.dis PRN Reason: Nausea Home Medications: Home Meds Aspirin 81 mg PO DAILY 08/19/16 [History] traZODone 1 tab PO BEDTIME PRN 09/23/16 [History] Ondansetron [Zofran ODT] 4 mg PO Q4H PRN #14 tab.dis 03/09/17 [Rx] Patient Handouts: Hyponatremia, [id number] Referrals: Aubree Baker NP [Primary Care Provider] - 03/14/17 10:45 am - Discharge Summary/Plan Comment DC Time >30 min.: Yes Discharge Summary/Plan Comment: 51 yo female admitted 03/06/17 with severe hyponatremia and diffuse abdominal pain. Patient initially presented to them ED on 03/06/17 with two-week history of abdominal pain. The pain was mostly localized to the right side with some migration to the epigastrium. A previous admission she also developed some associated nausea and vomiting and reported that she could not keep anything down. In the emergency room and was found to have a sodium of 119. Patient reported no history of alcohol or diuretic use but was taking proximal team. Patient stated she started this medication in August. In ED, CT abdomen revealed healed some mild mesenteric edema and trace intraperitoneal fluid as well as a moderately distended stomach but no acute findings. Chest x-ray was unremarkable Patient was admitted for severe hyponatremia. Hyponatremia was slowly corrected with IV fluids as well as desmopressin. On day of discharge sodium had returned to normal. It was felt that her hyponatremia was most likely secondary to Paxil use. In addition, patient remained normotensive throughout her stay without addition of her prescribed atenolol. It was recommended the patient discontinue both Paxil and atenolol. On follow-up her blood pressure should be reassessed to determine if medical management is warranted. Patient was discharged in good condition with followup appointment with her PCP as well as a prescription for Zofran for any future nausea. It was advised that the patient possibly get food allergen testing as she has had difficulty with tolerating her normal diet. Clinical Physician Assistant did talk with the a patient during stay. - Patient Data Vitals - Most Recent: Last Vital Signs Temp 36.6 C 03/09/17 08:00 Pulse 63 03/07/17 15:00 Resp 14 03/09/17 08:00 BP 108/67 03/09/17 08:00 Pulse Ox 98 03/09/17 08:00 Weight - Most Recent: 56.1 kg I&O - Last 24 hours: Intake & Output 03/08/17 03/09/17 03/09/17 22:59 06:59 14:59 Intake Total 1240 450 Output Total 4150 2300 Balance -2910 -1850 Lab Results - Last 24 hrs: Laboratory Results - last 24 hr 03/08/17 03/08/17 03/09/17 Range/Units 11:58 18:01 04:05 WBC 6.80 (4.0-11.0) K/uL RBC 3.99 L (4.30-5.90) M/uL Hgb 12.0 (12.0-16.0) g/dL Hct 35.6 L (36.0-46.0) % MCV 89.2 (80.0-98.0) fL MCH 30.1 (27.0-32.0) pg MCHC 33.7 (31.0-37.0) g/dL RDW Std Deviation 40.8 (28.0-62.0) fl RDW Coeff of Sampson 13 (11.0-15.0) % Plt Count 137 L (150-400) K/uL MPV 12.20 H (7.40-12.00) fL Neut % (Auto) 51.9 (48.0-80.0) % Lymph % (Auto) 36.3 (16.0-40.0) % Stephenson % (Auto) 11.0 (0.0-15.0) % Eos % (Auto) 0.7 (0.0-7.0) % Baso % (Auto) 0.1 (0.0-1.5) % Neut # (Auto) 3.5 (1.4-5.7) K/uL Lymph # (Auto) 2.5 H (0.6-2.4) K/uL Stephenson # (Auto) 0.8 (0.0-0.8) K/uL Eos # (Auto) 0.1 (0.0-0.7) K/uL Baso # (Auto) 0.0 (0.0-0.1) K/uL Nucleated RBC % 0.0 /100WBC Nucleated RBCs # 0 K/uL Sodium 135 L 135 L (136-146) mmol/L Potassium 4.1 4.2 (3.5-5.1) mmol/L Chloride 105 105 (98-110) mmol/L Carbon Dioxide 22 21 (21-31) mmol/L Anion Gap 12.1 13.2 BUN (6.0-23.0) mg/dL Creatinine (0.6-1.5) mg/dL Est Cr Clr Drug Dosing mL/min Estimated GFR (MDRD) ml/min Glucose (60-110) mg/dL Calcium (8.8-10.8) mg/dL Total Bilirubin (0.1-1.5) mg/dL AST (5-40) IU/L ALT (8-54) IU/L Alkaline Phosphatase (40-150) Total Protein (6.0-8.0) g/dL Albumin (3.5-5.0) g/dL Globulin (2.0-3.5) g/dL Albumin/Globulin Ratio (1.3-2.8) 03/09/17 Range/Units 04:05 WBC (4.0-11.0) K/uL RBC (4.30-5.90) M/uL Hgb (12.0-16.0) g/dL Hct (36.0-46.0) % MCV (80.0-98.0) fL MCH (27.0-32.0) pg MCHC (31.0-37.0) g/dL RDW Std Deviation (28.0-62.0) fl RDW Coeff of Sampson (11.0-15.0) % Plt Count (150-400) K/uL MPV (7.40-12.00) fL Neut % (Auto) (48.0-80.0) % Lymph % (Auto) (16.0-40.0) % Stephenson % (Auto) (0.0-15.0) % Eos % (Auto) (0.0-7.0) % Baso % (Auto) (0.0-1.5) % Neut # (Auto) (1.4-5.7) K/uL Lymph # (Auto) (0.6-2.4) K/uL Stephenson # (Auto) (0.0-0.8) K/uL Eos # (Auto) (0.0-0.7) K/uL Baso # (Auto) (0.0-0.1) K/uL Nucleated RBC % /100WBC Nucleated RBCs # K/uL Sodium 136 (136-146) mmol/L Potassium 3.8 (3.5-5.1) mmol/L Chloride 105 (98-110) mmol/L Carbon Dioxide 23 (21-31) mmol/L Anion Gap BUN 9 (6.0-23.0) mg/dL Creatinine 0.7 (0.6-1.5) mg/dL Est Cr Clr Drug Dosing 77.74 mL/min Estimated GFR (MDRD) > 60.0 ml/min Glucose 90 (60-110) mg/dL Calcium 8.9 (8.8-10.8) mg/dL Total Bilirubin 0.3 (0.1-1.5) mg/dL AST 26 (5-40) IU/L ALT 41 (8-54) IU/L Alkaline Phosphatase 64 (40-150) Total Protein 6.1 (6.0-8.0) g/dL Albumin 3.8 (3.5-5.0) g/dL Globulin 2.3 (2.0-3.5) g/dL Albumin/Globulin Ratio 1.7 (1.3-2.8) Med Orders - Current: Current Medications Discontinued Medications Desmopressin Acetate (Desmopressin) 2 mcg SUBCUT ONETIME ONE Stop: 03/06/17 22:40 Last Admin: 03/06/17 22:55 Dose: 2 mcg Sodium Chloride (Normal Saline) 1,000 mls @ 999 mls/hr IV STAT ONE Stop: 03/06/17 11:48 Last Admin: 03/06/17 11:02 Dose: 999 mls/hr Sodium Chloride (Normal Saline) 1,000 mls @ 75 mls/hr IV ASDIRECTED PERCY Dextrose/Water (Dextrose 5% In Water) 1,000 mls @ 100 mls/hr IV ASDIRECTED PERCY Last Admin: 03/06/17 19:04 Dose: 100 mls/hr Dextrose/Water (Dextrose 5% In Water) 1,000 mls @ 150 mls/hr IV ASDIRECTED PERCY Last Admin: 03/07/17 02:22 Dose: 150 mls/hr Dextrose/Water (Dextrose 5% In Water) 500 mls @ 500 mls/hr IV ASDIRECTED PERCY Last Admin: 03/07/17 03:55 Dose: 500 mls/hr Potassium Chloride 30 meq/ (Dextrose/Water) 1,015 mls @ 100 mls/hr IV Q10H PERCY Last Admin: 03/07/17 08:45 Dose: 100 mls/hr Sodium Chloride (Normal Saline) 1,000 mls @ 50 mls/hr IV ASDIRECTED PERCY Last Infusion: 03/07/17 19:57 Dose: 100 mls/hr Sodium Chloride (Normal Saline) 1,000 mls @ 100 mls/hr IV ASDIRECTED PERCY Last Admin: 03/08/17 04:59 Dose: 100 mls/hr Dextrose/Sodium Chloride (Dextrose 5%-1/2 Ns) 1,000 mls @ 50 mls/hr IV ASDIRECTED PERCY Last Admin: 03/08/17 13:58 Dose: 50 mls/hr Ondansetron HCl (Zofran Odt) 4 mg PO ONETIME ONE Stop: 03/06/17 10:49 Last Admin: 03/06/17 11:09 Dose: Not Given Ondansetron HCl (Zofran) 4 mg IVPUSH ONETIME ONE Stop: 03/06/17 10:55 Last Admin: 03/06/17 11:03 Dose: 4 mg Ondansetron HCl (Zofran) 4 mg IVPUSH Q4H PRN PRN Reason: Nausea Last Admin: 03/07/17 18:15 Dose: 4 mg Potassium Chloride (Klor-Con M20) 20 meq PO ONETIME ONE Stop: 03/07/17 05:22 Last Admin: 03/07/17 05:46 Dose: 20 meq *Q Meaningful Use (DIS) - VTE *Q VTE Criteria *Q: - Stroke *Q Stroke Criteria *Q: - AMI *Q AMI Criteria *Q: <Tim Garcia - Last Filed: 03/09/17 18:25> Discharge Summary - Patient Summary/Data Consults: Consultations 03/08/17 10:30 Consult to Clinical Physician Assistant [CONS] Routine - Patient Data Vitals - Most Recent: Last Vital Signs Temp 36.6 C 03/09/17 08:00 Pulse 63 03/07/17 15:00 Resp 14 03/09/17 08:00 BP 108/67 03/09/17 08:00 Pulse Ox 98 03/09/17 08:00 I&O - Last 24 hours: Intake & Output 03/09/17 03/09/17 03/09/17 06:59 14:59 22:59 Intake Total 450 Output Total 2300 Balance -1850 Lab Results - Last 24 hrs: Laboratory Results - last 24 hr 03/08/17 03/09/17 03/09/17 Range/Units 18:01 04:05 04:05 WBC 6.80 (4.0-11.0) K/uL RBC 3.99 L (4.30-5.90) M/uL Hgb 12.0 (12.0-16.0) g/dL Hct 35.6 L (36.0-46.0) % MCV 89.2 (80.0-98.0) fL MCH 30.1 (27.0-32.0) pg MCHC 33.7 (31.0-37.0) g/dL RDW Std Deviation 40.8 (28.0-62.0) fl RDW Coeff of Sampson 13 (11.0-15.0) % Plt Count 137 L (150-400) K/uL MPV 12.20 H (7.40-12.00) fL Neut % (Auto) 51.9 (48.0-80.0) % Lymph % (Auto) 36.3 (16.0-40.0) % Stephenson % (Auto) 11.0 (0.0-15.0) % Eos % (Auto) 0.7 (0.0-7.0) % Baso % (Auto) 0.1 (0.0-1.5) % Neut # (Auto) 3.5 (1.4-5.7) K/uL Lymph # (Auto) 2.5 H (0.6-2.4) K/uL Stephenson # (Auto) 0.8 (0.0-0.8) K/uL Eos # (Auto) 0.1 (0.0-0.7) K/uL Baso # (Auto) 0.0 (0.0-0.1) K/uL Nucleated RBC % 0.0 /100WBC Nucleated RBCs # 0 K/uL Sodium 135 L 136 (136-146) mmol/L Potassium 4.2 3.8 (3.5-5.1) mmol/L Chloride 105 105 (98-110) mmol/L Carbon Dioxide 21 23 (21-31) mmol/L Anion Gap 13.2 BUN 9 (6.0-23.0) mg/dL Creatinine 0.7 (0.6-1.5) mg/dL Est Cr Clr Drug Dosing 77.74 mL/min Estimated GFR (MDRD) > 60.0 ml/min Glucose 90 (60-110) mg/dL Calcium 8.9 (8.8-10.8) mg/dL Total Bilirubin 0.3 (0.1-1.5) mg/dL AST 26 (5-40) IU/L ALT 41 (8-54) IU/L Alkaline Phosphatase 64 (40-150) Total Protein 6.1 (6.0-8.0) g/dL Albumin 3.8 (3.5-5.0) g/dL Globulin 2.3 (2.0-3.5) g/dL Albumin/Globulin Ratio 1.7 (1.3-2.8) Med Orders - Current: Current Medications Discontinued Medications Desmopressin Acetate (Desmopressin) 2 mcg SUBCUT ONETIME ONE Stop: 03/06/17 22:40 Last Admin: 03/06/17 22:55 Dose: 2 mcg Sodium Chloride (Normal Saline) 1,000 mls @ 999 mls/hr IV STAT ONE Stop: 03/06/17 11:48 Last Admin: 03/06/17 11:02 Dose: 999 mls/hr Sodium Chloride (Normal Saline) 1,000 mls @ 75 mls/hr IV ASDIRECTED PERCY Dextrose/Water (Dextrose 5% In Water) 1,000 mls @ 100 mls/hr IV ASDIRECTED PERCY Last Admin: 03/06/17 19:04 Dose: 100 mls/hr Dextrose/Water (Dextrose 5% In Water) 1,000 mls @ 150 mls/hr IV ASDIRECTED PERCY Last Admin: 03/07/17 02:22 Dose: 150 mls/hr Dextrose/Water (Dextrose 5% In Water) 500 mls @ 500 mls/hr IV ASDIRECTED PERCY Last Admin: 03/07/17 03:55 Dose: 500 mls/hr Potassium Chloride 30 meq/ (Dextrose/Water) 1,015 mls @ 100 mls/hr IV Q10H PERCY Last Admin: 03/07/17 08:45 Dose: 100 mls/hr Sodium Chloride (Normal Saline) 1,000 mls @ 50 mls/hr IV ASDIRECTED PERCY Last Infusion: 03/07/17 19:57 Dose: 100 mls/hr Sodium Chloride (Normal Saline) 1,000 mls @ 100 mls/hr IV ASDIRECTED PERCY Last Admin: 03/08/17 04:59 Dose: 100 mls/hr Dextrose/Sodium Chloride (Dextrose 5%-1/2 Ns) 1,000 mls @ 50 mls/hr IV ASDIRECTED PERCY Last Admin: 03/08/17 13:58 Dose: 50 mls/hr Ondansetron HCl (Zofran Odt) 4 mg PO ONETIME ONE Stop: 03/06/17 10:49 Last Admin: 03/06/17 11:09 Dose: Not Given Ondansetron HCl (Zofran) 4 mg IVPUSH ONETIME ONE Stop: 03/06/17 10:55 Last Admin: 03/06/17 11:03 Dose: 4 mg Ondansetron HCl (Zofran) 4 mg IVPUSH Q4H PRN PRN Reason: Nausea Last Admin: 03/07/17 18:15 Dose: 4 mg Potassium Chloride (Klor-Con M20) 20 meq PO ONETIME ONE Stop: 03/07/17 05:22 Last Admin: 03/07/17 05:46 Dose: 20 meq *Q Meaningful Use (DIS) - VTE *Q VTE Criteria *Q: - Stroke *Q Stroke Criteria *Q: - AMI *Q AMI Criteria *Q: - Free Text/Narrative Note: I have examined the patient. I have discussed findings and treatment plan with resident. I agree with the assessment and plan outlined in the following resident's note. Paxil had been dictated incorrectly as "proximal team" in the note
== END 2017-03-09 10:50 | disposition home or self-care (01) | DRG 425 ==
LOC: MW.ED 09:42 → MW.ICU 11:36
PROVIDERS: ADMIT Internal Medicine; ATTEND Internal Medicine
DX: E87.1 Hypo-osmolality and hyponatremia (principal); R10.13 Epigastric pain; I10 Essential (primary) hypertension; Z86.73 Personal history of transient ischemic attack (TIA), and cerebral infarction without residual deficits; F41.9 Anxiety disorder, unspecified
CPT/HCPCS: 36415; 71010; 71010-26; 74176; 74176-26; 80048; 80051; 80053; 81001; 82150; 82570; 83690; 84295; 84300; 84439; 84443; 85025; 96361; 96374; 99285; 99285-25; A9270-GY; J2405; J2597; J3480; J7040; J7042; J7060

== ENCOUNTER 2017-04-28 09:02 | Day surgery (SDC) | payer BC ==
[~2017-04-28 09:02] MED LIST changes: +Bupivacaine 0.5% 30 ML SDV ONE; +Lidocaine 2% 5 ML SDV ONE; +Midazolam 1 MG/ML 2 ML SDV ONE; +Octyl 2-Cyanoacrylate 1 Tube ONE; +Propofol 200 MG/20 ML SDV ONE; +ceFAZolin 2 GM in Premix Bag 1 BAG IV ONE; +fentaNYL 100 MCG/2 ML SDV ONE
[2017-04-28] MEDS ORDERED: Rocuronium 10 MG/ML 10 ML Syringe ONE (09:16)
[2017-04-28] MEDS ORDERED: fentaNYL 100 MCG/2 ML SDV ONE ×2 (09:34→12:13)
[2017-04-28] MEDS ORDERED: Neostigmine Methylsulfate 1 MG/ML 5 ML Syringe ONE (09:37)
[2017-04-28] MEDS ORDERED: Scopolamine 1.5 MG Transdermal Patch TRDERM PRN (09:51)
--- NOTE | 2017-04-28 09:51 | PCM.PREANE ---
Preanesthetic Assessment - Anesthesia/Transfusion/Family Hx Anesthesia History: Prior Anesthesia Without Reaction Family History of Anesthesia Reaction: No Transfusion History: No Prior Transfusion(s) - Review of Systems General: No Symptoms Pulmonary: No Symptoms Cardiovascular: No Symptoms Gastrointestinal: No Symptoms Neurological: No Symptoms Other: Reports: None - Physical Assessment NPO Status Date: 04/28/17 NPO Status Time: 12:20 O2 Sat by Pulse Oximetry: 96 Respiratory Rate: 16 Vital Signs: Last Vital Signs Temp 36.8 C 04/28/17 09:25 Pulse 50 L 04/28/17 09:25 Resp 16 04/28/17 09:25 BP 110/69 04/28/17 09:25 Pulse Ox 96 04/28/17 09:25 Height: 1.6 m Weight: 54.431 kg ASA Class: 2 Mental Status: Alert & Oriented x3 Airway Class: Mallampati = 1 Dentition: Reports: Normal Dentition ROM/Head Extension: Full Lungs: Clear to Auscultation, Normal Respiratory Effort Cardiovascular: Regular Rate, Regular Rhythm - Allergies Allergies/Adverse Reactions: Allergies Allergy/AdvReac Type Severity Reaction Status Date / Time No Known Allergies Allergy Verified 04/26/17 09:19 - Anesthesia Plan Pre-Op Medication Ordered: Other (scop) - Acknowledgements Anesthesia Type Planned: General Anesthesia Pt an Appropriate Candidate for the Planned Anesthesia: Yes Alternatives and Risks of Anesthesia Discussed w Pt/Guardian: Yes Pt/Guardian Understands and Agrees with Anesthesia Plan: Yes PreAnesthesia Questionnaire - Past Health History Medical/Surgical History: Denies Medical/Surgical History HEENT History: Reports: Other (See Below) Other HEENT History: wears glasses Cardiovascular History: Reports: None Respiratory History: Reports: None Gastrointestinal History: Other Gastrointestinal History: has stomach pains/ heartburn often. Genitourinary History: Reports: Other (See Below) Other Genitourinary History: trouble urinating in the past, [employer] DEVELOPER History: Reports: Fibroids, Other OB/BYN History: ovarian cyst Musculoskeletal History: Reports: Arthritis, Back Pain, Chronic Neurological History: Reports: Migraines, TIA Other Neuro History: 2011 "mini strokes", no residual Psychiatric History: Endocrine/Metabolic History: Reports: None Hematologic History: Reports: None Immunologic History: Reports: None Oncologic (Cancer) History: Reports: None Dermatologic History: Reports: None Other Dermatologic History: toe nail fungus - Infectious Disease History Infectious Disease History: Reports: Chicken Pox - Past Surgical History Head Surgeries/Procedures: Reports: None HEENT Surgical History: Reports: Oral Surgery Other HEENT Surgeries/Procedures: wisdom teeth extraction Cardiovascular Surgical History: Reports: None Respiratory Surgical History: Reports: None GI Surgical History: Reports: Colonoscopy Female Surgical History: Reports: Hysterectomy, Salpingo-Oophorectomy Other Female Surgeries/Procedures: hx hysterectomy with tigist S&O Endocrine Surgical History: Reports: None Neurological Surgical History: Reports: None Musculoskeletal Surgical History: Reports: None Oncologic Surgical History: Reports: None Dermatological Surgical History: Reports: None - SUBSTANCE USE Smoking Status *Q: Never Smoker Tobacco Use Within Last Twelve Months: No Second Hand Smoke Exposure: No Recreational Drug Use History: No - HOME MEDS Home Medications: Home Meds Aspirin 81 mg PO DAILY 08/19/16 [History] traZODone 1 tab PO BEDTIME PRN 09/23/16 [History] - CURRENT (IN HOUSE) MEDS Current Meds: Current Medications Lactated Ringer's (Ringers, Lactated) 1,000 mls @ 125 mls/hr IV ASDIRECTED [facility] Last Admin: 04/28/17 09:28 Dose: 125 mls/hr Discontinued Medications Bupivacaine HCl (Marcaine 0.5%) Confirm Administered Dose 30 ml .ROUTE .STK-MED ONE Stop: 04/28/17 07:18 Fentanyl (Sublimaze) Confirm Administered Dose 100 mcg .ROUTE .STK-MED ONE Stop: 04/28/17 07:54 Fentanyl (Sublimaze) Confirm Administered Dose 200 mcg .ROUTE .STK-MED ONE Stop: 04/28/17 09:35 Glycopyrrolate () Confirm Administered Dose 1 mg .ROUTE .STK-MED ONE Stop: 04/28/17 09:38 Cefazolin Sodium/Dextrose 2 gm (/ Premix) 50 mls @ 100 mls/hr IV ONETIME ONE Stop: 04/28/17 05:29 Lidocaine (Xylocaine-Mpf 2%) Confirm Administered Dose 5 ml .ROUTE .STK-MED ONE Stop: 04/28/17 07:54 Midazolam HCl (Versed 1 Mg/Ml) Confirm Administered Dose 2 mg .ROUTE .STK-MED ONE Stop: 04/28/17 07:54 Neostigmine Methylsulfate (Neostigmine) Confirm Administered Dose 5 mg .ROUTE .STK-MED ONE Stop: 04/28/17 09:38 Octyl Cyanoacrylate (Dermabond Advance) Confirm Administered Dose 1 applic .ROUTE .STK-MED ONE Stop: 04/28/17 07:18 Propofol (Diprivan 20 Ml) Confirm Administered Dose 400 mg .ROUTE .STK-MED ONE Stop: 04/28/17 07:54 Rocuronium [place] (Zemuron) Confirm Administered Dose 100 mg .ROUTE .STK-MED ONE Stop: 04/28/17 09:17
[2017-04-28] MEDS ORDERED: ceFAZolin 1 GM Vial ONE (10:45)
[2017-04-28] MEDS ORDERED: Sodium Chloride 0.9% 20 ML ONE (10:45)
[2017-04-28] MEDS ORDERED: ePHEDrine 50 MG/ML SDV ONE (10:50)
[2017-04-28] MEDS ORDERED: Phenylephrine/Normal Saline 100 MCG/ML 10 ML Syringe ONE (10:50)
[2017-04-28] MEDS ORDERED: Ondansetron 4 MG/2 ML SDV ONE (10:52)
--- NOTE | 2017-04-28 11:57 | PCM.OPNOTE ---
- General Post-Op/Procedure Note Date of Surgery/Procedure: 04/28/17 Operative Procedure(s): lap janny Findings: gb yellow and green, large adhesion to surrounding organs, wall is not thickened , cw chronic cholecystitis; [id number] Pre Op Diagnosis: biliary dyskinesia Post-Op Diagnosis: chronic cholecystitis Anesthesia Technique: General ET Tube Primary Surgeon: Jossue Sheppard Pathology: sent Complications: None Condition: Good
[2017-04-28] MEDS ORDERED: Acetaminophen/oxyCODONE 325-5 MG Tab PO ONE (12:05)
[2017-04-28] MEDS ORDERED: HYDROmorphone 1 MG/ML Syringe IVPUSH ONE (12:12)
[2017-04-28] MEDS: fentaNYL 100 MCG/2 ML SDV IVPUSH PRN ×2 (12:15→12:25)
--- NOTE | 2017-04-28 12:33 | OR ---
SURGEON: Jossue Sheppard MD DATE OF PROCEDURE: 04/28/2017 PREOPERATIVE DIAGNOSIS: Biliary dyskinesia. POSTOPERATIVE DIAGNOSIS: Chronic cholecystitis. COMPLICATIONS: None. FINDINGS: Gallbladder is yellow and green with large amount of adhesions from surrounding organ consistent with chronicity and yellow and green consistent with cholecystitis. Wall is not thickened. PROCEDURE PERFORMED: Laparoscopic cholecystectomy. DESCRIPTION OF PROCEDURE: The patient was taken to the operating room and placed in the supine position. After the intubation of general endotracheal anesthesia, the patient's abdomen was prepped and draped in the usual sterile fashion. Using [place], a 12 mm trocar was placed supraumbilically and then followed with pneumoperitoneum. A 5 mm trocar was placed in the epigastrium and two 5 mm trocars placed in the right upper quadrant. The placement of the last three trocars was done under direct video supervision. Upon gaining entrance to the abdominal cavity, an extensive examination was then performed. The gallbladder was located and identified and retracted to the dome of the liver at the triangle of [place]ot. The cystic duct was clipped three more times and then using the endoscopic clip, was transected with placement of the endoscopic clip and transection was performed with care, ensuring the posterior prong of the instruments were clearly visualized prior to exercising the procedure. The gallbladder was dissected using electrocautery out of the liver bed and then removed using endoscopic bag through the umbilical site. The gallbladder was removed en bloc and there was no bile spillage and this was then followed with extensive irrigation until the bile was clear from blood and bile. The trocars were then removed under direct video supervision. The 12 mm umbilical site was then closed with deep stitches using 0 Vicryl followed with proximal stitches using 3-0 Vicryl and Dermabond. The other three trocar sites were closed with 3-0 Vicryl followed with approximation of skin with Dermabond. The patient was then awakened and extubated and transferred to the recovery room in hemodynamically stable condition. At the conclusion of the surgery, before closing the abdominal wound, instrument count and sponge count were done and were correct. The patient tolerated the procedure well and there were no intraoperative complications. Dr. Sheppard was present through the whole procedure. Just before surgery, a timeout was called. The patient was identified and procedure identified and procedure started. Intraoperative findings as dictated above. As always, thank you for the kind referral. TANJA / LILLY LOPEZ: 04/28/2017 11:55:10 /[id number]
--- NOTE | 2017-04-28 13:10 | PCM.POSTAN ---
POST ANESTHESIA ASSESSMENT - MENTAL STATUS Mental Status: Alert, Oriented - RESPIRATORY Respiratory Status: Respiratory Rate WNL, Airway Patent, O2 Saturation Stable - CARDIOVASCULAR CV Status: Pulse Rate WNL, Blood Pressure Stable - GASTROINTESTINAL GI Status: No Symptoms - POST OP HYDRATION Hydration Status: Adequate & Stable
[2017-04-28] MEDS ORDERED: Bupivacaine 0.25%/EPINEPHrine 1:200,000 10 ML SDV ONE (13:40)
[2017-04-28] MEDS ORDERED: Acetaminophen 1,000 MG in Premix Bag 1 BAG IV ONE (14:41)
--- NOTE | 2017-04-28 15:38 | PCM48HPAN ---
Post Anesthesia Note - EVALUATION WITHIN 48HRS OF ANESTHETIC Vital Signs in Normal Range: Yes Patient Participated in Evaluation: Yes Respiratory Function Stable: Yes Airway Patent: Yes Cardiovascular Function Stable: Yes Hydration Status Stable: Yes Pain Control Satisfactory: Yes Nausea and Vomiting Control Satisfactory: Yes Mental Status Recovered: Yes - COMMENTS/OBSERVATIONS Free Text/Narrative:: Pt still states that she is "sore" after IV Tylenol, but states she feels better. Pt does state she feels comfortable enough to go home. No nausea at this time.
[2017-04-28 16:02] VITALS: BP 130/65
== END 2017-04-28 16:00 | disposition home or self-care (01) ==
LOC: MW.SDS 09:02
PROVIDERS: ATTEND Surgery
PROC: 0FT44ZZ Resection of Gallbladder, Percutaneous Endoscopic Approach (ICD-10-PCS; principal; 2017-04-28)
DX: K81.1 Chronic cholecystitis (principal); F41.9 Anxiety disorder, unspecified; M19.90 Unspecified osteoarthritis, unspecified site; Z79.82 Long term (current) use of aspirin; Z86.73 Personal history of transient ischemic attack (TIA), and cerebral infarction without residual deficits; Z90.710 Acquired absence of both cervix and uterus; Z90.722 Acquired absence of ovaries, bilateral; Z90.79 Acquired absence of other genital organ(s); Z98.890 Other specified postprocedural states
CPT/HCPCS: 47562; A9270; J0690; J2250; J2405; J3010; J7120; 00790; 88304; J2704